=== PATIENT | male | born 1995 | race Caucasian/White ===

== ENCOUNTER → 2019-12-22 | Outpatient (CLI) | payer OTHER | LOC: LAB 08:11 | DX: J02.9 Acute pharyngitis, unspecified (principal); R11.0 Nausea; R19.7 Diarrhea, unspecified; R06.02 Shortness of breath; R09.81 Nasal congestion; H57.89 Other specified disorders of eye and adnexa; M79.10 Myalgia, unspecified site; Z20.828 Contact with and (suspected) exposure to other viral communicable diseases ==